=== PATIENT | female | born 1970 | race Two or more races ===

== ENCOUNTER 2017-05-06 17:20 | Emergency (ER) | payer OTHER ==
[~2017-05-06] VITALS: Ht 152.4 cm; Wt 64.9 kg
--- NOTE | 2017-05-06 18:01 | NUR ---
PT REC'D MTO ER C/O PAIN 02/26 LEFT ANKLE AND LEFT WRIST AT WORK SIGNED [facility] FOR [facility]
[2017-05-06] MEDS: IBUPROFEN 600 MG TABLET PO ONE ×2 (18:02→18:51)
--- NOTE | 2017-05-06 18:02 | NUR ---
AWAITING EVALUATION BY ER PROVIDER.
--- NOTE | 2017-05-06 18:03 | NUR ---
MOTRIN 600 MG PO NOW
[2017-05-06] MEDS ORDERED: IBUPROFEN 600 MG TABLET PO ONE (18:04)
--- NOTE | 2017-05-06 18:47 | NUR ---
PT REFUSED MOTRIN AND PO AWAITING EVALUATION BY ER PROVIDER.
--- NOTE | 2017-05-06 19:14 | NUR ---
PT LEFT ANKLE SPLINTED SURINDER WRASP TO LEFT WRIST AMB WITHOUT ASSISTANCE
--- NOTE | 2017-05-06 19:17 | NUR ---
PT. VERBALIZED UNDERSTANDING OF AFTERCARE INSTRUCTIONS.Patient discharged to home in stable condition. Written and verbal after care instructions given. Patient verbalizes understanding of instruction.
[2017-05-06 19:18] VITALS: BP 119/73
[2017-05-06] MEDS ORDERED: VANCOMYCIN HCL 125 MG/2.5 ML ORAL.SUSP ONE (23:38)
== END 2017-05-06 19:19 | disposition home or self-care (01) ==
LOC: ER 17:24
DX: S93.492A Sprain of other ligament of left ankle, initial encounter (principal); W01.0XXA Fall on same level from slipping, tripping and stumbling without subsequent striking against object, initial encounter; Y93.89 Activity, other specified; Y92.89 Other specified places as the place of occurrence of the external cause; Y99.8 Other external cause status; S83.8X2A Sprain of other specified parts of left knee, initial encounter
CPT/HCPCS: 29515; 73100; 73560; 73600; 99284; A4606; Z7610